=== PATIENT | female | born 1935 | race Caucasian/White ===

== ENCOUNTER 2017-11-16 09:05 | Outpatient (CLI) | payer MEDICARE ==
--- NOTE | 2017-11-16 12:08 | MRI ---
MRI LUMBAR SPINE WITHOUT IV CONTRAST: 11/16/2017 HISTORY: Radiculopathy of the lumbar region. COMPARISON: 02/01/2014 FINDINGS: There is a large ventral abdominal wall hernia at the level of the umbilicus, which contains loops of small bowel. The defect measures approximately 4.3 cm in craniocaudal dimensions. Based on this li mited examination, no dilated loops of small bowel are seen. There are stable increased T2 weighted signal intensity exophytic lesions involving the left kidney, statistically likely representing small cysts. The remainder of the retroperitoneal structures have a normal MRI appearance. The conus medullaris is normal in appearance and terminates at the level of the L1 vertebral body. There are mild endplate degenerative changes seen at the lumbosacral junction. There is a stable rou nded area of increased T1 and T2 weighted signal intensity seen in the T2 vertebral body, demonstrati ng characteristics most compatible with hemangioma. A similar finding is seen in the L4 vertebral louann dy. L1-L2: There is a mild broad-based disk osteophyte complex, which slightly effaces the ventral aspec t of the thecal sac. The neural foramina are patent at this level. L2-L3: There is a mild broad-based disk bulge and facet degenerative changes. Findings result in mi nimal narrowing of the central spinal canal. The neural foramina are patent. L3-L4: There is a broad-based disk osteophyte complex with moderate facet hypertrophic changes. The re is minimal narrowing of the central spinal canal due to the disk osteophyte complex and mass effec t on the posterolateral aspects of the thecal sac due to prominent facet hypertrophic changes. The n eural foramina are patent. L4-L5: There has been interval development of grade 1 anterolisthesis of L4 on L5 with the degree of listhesis measuring approximately 5 to 6 mm. There is a disk osteophyte complex present with severe facet hypertrophic changes. Fluid signal intensity is seen in the facet joints. There is mild thic kening of the ligamentum flavum. There is only minimal encroachment on the left neural foramen with mild to moderate right-sided neural foraminal narrowing. There is suggestion of a synovial cyst in t he right neural foramen on the prior exam, emanating from the facet joint, but this is not appreciate d on today's exam or is at least much smaller in size compared to the prior exam. L5-S1: Again, there is grade 1 anterolisthesis of L5 on S1 with prominent bilateral facet hypertroph ic changes with fluid signal intensity in the facet joints; however, there is no significant narrowin g of the central spinal canal. There is a mild broad-based disk osteophyte complex with mild right-s ided neural foraminal narrowing. The left neural foramen is patent. IMPRESSION: 1. Large ventral abdominal wall hernia, which is at the level of the umbilicus. This hernia does co ntain loops of small bowel. 2. Multilevel degenerative changes in the lumbar spine, overall similar to the study in 2014, with g rade 1 anterolisthesis of L4 on L5 and L5 on S1. The previously described synovial cyst at theseen delineated on today's examination and is certainly much smaller in size, compared to the prior exam. POS: [facility]
== END 2017-11-16 09:06 | disposition home or self-care (01) ==
LOC: MRI 09:05
PROVIDERS: ATTEND Nurse Practitioner Family
DX: M47.26 Other spondylosis with radiculopathy, lumbar region (principal); M43.16 Spondylolisthesis, lumbar region; M43.17 Spondylolisthesis, lumbosacral region; K42.9 Umbilical hernia without obstruction or gangrene; K43.9 Ventral hernia without obstruction or gangrene
CPT/HCPCS: 72148

== ENCOUNTER 2017-11-19 08:36 | Outpatient (CLI) | payer MEDICARE ==
--- NOTE | 2017-11-19 09:59 | RAD ---
NEUTRAL AND FLEXION AND EXTENSION LATERAL RADIOGRAPHS OF THE LUMBAR SPINE: DATE: 11/19/17. HISTORY: Lumbar radiculopathy. FINDINGS: There is an old fracture at the S2 level. On neutral imaging, there is anterolisthesis measuring 4 m m at L3-4, 1 cm at L4-5, and 1 cm at L5-S1 with flexion, anterolisthesis measures 5 mm at L3-4, 12 mm at L4-5, and 11 mm at L5-S1. With extension, anterolisthesis of L3 on L4 measures 2 mm, L4 on L5 me asures 9 mm, and L5 on S1 measures 9 mm. There is multilevel lower lumbar spine facet hypertrophic change. No acute fracture is seen. There is atherosclerotic calcification of the abdominal aorta. IMPRESSION: Multilevel anterolisthesis within the lower lumbar spine, most prominent with flexion. POS: [facility]
== END 2017-11-19 08:37 | disposition home or self-care (01) ==
LOC: RAD 08:36
PROVIDERS: ATTEND Nurse Practitioner Family
DX: M54.16 Radiculopathy, lumbar region (principal); M43.16 Spondylolisthesis, lumbar region
CPT/HCPCS: 72100

== ENCOUNTER 2017-12-28 10:00 | Outpatient (CLI) | payer MEDICARE ==
[2017-12-28 11:26] LABS: #Eosinphils 0.1 thou/uL (0.0-0.7); #Lymphocytes 1.6 thou/uL (1.20-3.40); #Monocytes 0.5 thou/uL (0.11-0.59); #Neutrophils 3.2 thou/uL (1.40-6.50); %Basophils 0.5 % (0.0-1.0); %Eosinophils 1.7 % (0.0-10.0); %Lymphocytes 29.3 % (21.0-51.0); %Monocytes 10.1 % (0.0-10.0); %Neutrophils 58.5 % (42.0-75.0); Hemoglobin 13.2 g/dL (12.0-16.0); Mean Corpuscular Hemoglobin 30.1 pg (27.0-31.0); Mean Corpuscular Volume 91.1 fl (81.0-99.0); Mean Platelet Volume 6.6 fL (7.4-10.4); Platelet Count 260 thou/uL (130-400); Red Blood Cell (RBC) Count 4.37 mill/uL (4.20-5.40); White Blood Cell (WBC) Count 5.4 thou/uL (4.8-10.8)
[2017-12-28 11:49] LABS: ALT (SGPT) 9 U/L (8-55); AST (SGOT) 17 U/L (5-34); Alkaline Phosphatase 53 U/L (40-150); Anion Gap 11 mmol/L (10-20); BUN (Urea Nitrogen) 21 mg/dL (9.8-20.1); Bilirubin, Total 0.6 mg/dL (0.2-1.2); Calc. Creatinine Clearance 0 mL/min (70-130); Calcium 9.5 mg/dL (7.8-10.44); Carbon Dioxide 24 mmol/L (23-31); Chloride 102 mmol/L (98-107); Estimated GFR-MDRD 69; Glucose 96 mg/dL (83-110); Potassium 3.9 mmol/L (3.5-5.1); Sodium 133 mmol/L (136-145)
--- NOTE | 2017-12-28 23:54 | EKG ---
Test Reason : Blood Pressure : / mmHG Vent. Rate : 050 BPM Atrial Rate : 050 BPM P-R Int : 190 ms QRS Dur : 076 ms QT Int : 418 ms P-R-T Axes : 074 037 053 degrees QTc Int : 381 ms Sinus bradycardia Otherwise normal ECG When compared with ECG of 02-OCT-2016 12:53, No significant change was found Confirmed by Andre GOMEZ ([id number]) on 12/28/2017 11:53:46 PM Referred By: ALEJANDRO Confirmed By:Andre GOMEZ
== END 2017-12-28 10:01 | disposition home or self-care (01) ==
LOC: LABBT 10:00
PROVIDERS: ATTEND Surgery
DX: Z01.818 Encounter for other preprocedural examination (principal); K43.9 Ventral hernia without obstruction or gangrene; R00.1 Bradycardia, unspecified
CPT/HCPCS: 80053; 85025; 93005; 93010

== ENCOUNTER 2017-12-31 05:39 | Inpatient (IN) | payer MEDICARE ==
[2017-12-28 10:23] VITALS: BMI 26.6
[2017-12-31] MEDS ORDERED: CEFAZOLIN 1 GM VIAL ONE (05:55)
[2017-12-31] MEDS ORDERED: CEFAZOLIN/Water 2 GM/20 ML SYRINGE ONE (05:56)
[2017-12-31] MEDS ORDERED: Bupivacaine/Epinephrine 0.25% 30 ML VIAL ONE (06:55)
[2017-12-31] MEDS ORDERED: Fentanyl 100 MCG/2 ML VIAL ONE ×2 (08:00→10:22)
[2017-12-31] MEDS ORDERED: Dextrose 50% Abboject 50 ML SYRINGE SLOW IVP PRN (10:07)
[2017-12-31] MEDS ORDERED: Ondansetron PF 4 MG/2 ML Vial IVP PRN (10:07)
[2017-12-31] MEDS ORDERED: Promethazine HCl 25 MG/ML VIAL IM PRN ×2 (10:07→10:23)
[2017-12-31] MEDS ORDERED: Dextrose 5% in Water 1,000 ML IV PRN (10:07)
[2017-12-31] MEDS ORDERED: Morphine 4 MG/ML Carpuject SLOW IVP PRN (10:07)
[2017-12-31] MEDS ORDERED: HYDROcodone/Acetaminophen 10/325 mg Tablet PO PRN ×2 (10:07)
[2017-12-31] MEDS ORDERED: hydrALAZINE 20 MG/ML VIAL SLOW IVP PRN (10:07)
[2017-12-31] MEDS ORDERED: Promethazine HCl 25 MG/ML VIAL SLOW IVP PRN (10:23)
[2017-12-31] MEDS ORDERED: Ondansetron HCl/PF 4 MG/2 ML Vial IVP PRN (10:23)
--- NOTE | 2017-12-31 10:39 | OP ---
PREOPERATIVE DIAGNOSIS: Recurrent incisional ventral hernia. SURGEON: Dalton Barnes M.D. PROCEDURE: Laparoscopic ventral hernia repair with mesh. INDICATIONS: This is an 82-year-old female who has had 3 previous umbilical/ventral hernia repairs w ith recurrences. FINDINGS: 6 cm defect. We used #1 V-Loc to close the defect and a 15 x 20 cm piece of Proceed mesh to repair. PROCEDURE IN DETAIL: After informed consent was obtained, the patient was taken to the operating arik m and given general endotracheal anesthesia. She was placed in the supine position with the right si de slightly bumped. Her flank and abdomen was prepped and draped in the usual fashion. Local anesth esia infiltrated subcutaneously and deep, and a transverse incision performed right flank. A Veress needle was inserted. Drop test performed. Pneumoperitoneum was created to a volume of 2 liters of c arbon dioxide. Utilizing a bladeless 12 mm trocar and 0-degree laparoscope, direct visual entry in t he abdominal cavity was performed. Pneumoperitoneum was created to a pressure of 15 [address] vision, two 5-mm ports were placed on the far right lateral abdomen. A laparoscopic lysis of adh esions was performed sharply utilizing the LigaSure. The anterior abdominal wall was completely saul brian off to expose the defect. The defect was closed with a running #1 V-Loc suture transversely, and this was done with the pressure reduced to 10 mmHg with the pressure continued to be at a lower leve l. A 15 x 20 cm piece of Proceed mesh was fashioned with eight alternating colored sutures placed. It was rolled and inserted intra-abdominally then unrolled. Then, using the GraNee needle, these Eth ibond sutures were grasped individually to position the mesh optimally to cover the defect. These we re then tied down and the mesh was further secured with the ProTack Tacker. Hemostasis was assured. At this point, the 12 mm trocar site was closed with 0 Vicryl suture and the GraNee needle. Trocars and retractors removed. The skin closed with interrupted 4-0 Rapide. Dermabond applied. An abdomi nal binder then applied. The patient tolerated the procedure well and was transferred to recovery in good condition. Sponge and needle count verified correct x2.
[2017-12-31] MEDS ORDERED: Morphine 2 mg/2ml in 0.9% NaCl PF SYRINGE SLOW IVP PRN (12:57)
[2017-12-31] MEDS ORDERED: Morphine 4 MG/ML VIAL SLOW IVP PRN (13:15)
[2017-12-31] MEDS: Ketorolac Tromethamine 30 MG/ML VIAL IVP SCH ×2 (13:22→17:58)
[2017-12-31] MEDS: D5 1/2 NS w/20 mEq KCL 1,000 ML IV SCH (13:22)
[2017-12-31] MEDS: Piperacillin/Tazobactam 3.375 GM in Sodium Chloride 0.9% 100 ML IVPB SCH ×2 (13:22→17:57)
[2017-12-31] MEDS ORDERED: Ondansetron PF 4 MG/2 ML Vial ONE (13:50)
[2017-12-31] MEDS ORDERED: ePHEDrine/0.9% NaCl/PF SYRINGE 50 mg/10 ml ONE (13:50)
[2017-12-31] MEDS ORDERED: Succinylcholine Chloride 20 MG/ML 10 ml SYRINGE FS ONE (13:50)
[2017-12-31] MEDS ORDERED: Glycopyrrolate 0.2 MG/ML 5 ML SYRINGE ONE (13:50)
[2017-12-31] MEDS ORDERED: PROPOFOL 200 MG/20 ML VIAL ONE (13:50)
[2017-12-31] MEDS: Famotidine/PF 20 mg/2ml Vial SLOW IVP SCH (21:25)
[2017-12-31] MEDS: Famotidine 20 MG TAB PO SCH (21:25)
[2018-01-01] MEDS: Ketorolac Tromethamine 30 MG/ML VIAL IVP SCH ×4 (00:14→18:26)
[2018-01-01] MEDS: Piperacillin/Tazobactam 3.375 GM in Sodium Chloride 0.9% 100 ML IVPB SCH ×4 (00:15→18:27)
[2018-01-01 04:31] LABS: #Eosinphils 0.1 thou/uL (0.0-0.7); #Lymphocytes 0.9 thou/uL (1.20-3.40); #Monocytes 0.7 thou/uL (0.11-0.59); #Neutrophils 6.1 thou/uL (1.40-6.50); %Basophils 0.2 % (0.0-1.0); %Eosinophils 0.7 % (0.0-10.0); %Lymphocytes 11.7 % (21.0-51.0); %Monocytes 9.3 % (0.0-10.0); %Neutrophils 78.1 % (42.0-75.0); Hemoglobin 11.3 g/dL (12.0-16.0); Mean Corpuscular HGB CONC 32.5 g/dL (32.0-36.0); Mean Corpuscular Hemoglobin 29.7 pg (27.0-31.0); Mean Corpuscular Volume 91.2 fl (81.0-99.0); Mean Platelet Volume 6.7 fL (7.4-10.4); Platelet Count 241 thou/uL (130-400); RBC Distribution Width 11.9 % (11.5-14.5); Red Blood Cell (RBC) Count 3.81 mill/uL (4.20-5.40); White Blood Cell (WBC) Count 7.8 thou/uL (4.8-10.8)
[2018-01-01 04:44] LABS: Anion Gap 9 mmol/L (10-20); BUN (Urea Nitrogen) 11 mg/dL (9.8-20.1); Calc. Creatinine Clearance 66 mL/min (70-130); Calcium 8.5 mg/dL (7.8-10.44); Carbon Dioxide 25 mmol/L (23-31); Chloride 101 mmol/L (98-107); Estimated GFR-MDRD 76; Glucose 135 mg/dL (83-110); Sodium 131 mmol/L (136-145)
[2018-01-01] MEDS: D5 1/2 NS w/20 mEq KCL 1,000 ML IV SCH ×4 (05:57→23:52)
[2018-01-01] MEDS: Enoxaparin Sodium 40 MG/0.4 ML SYRINGE SC SCH (08:34)
[2018-01-01] MEDS: Famotidine 20 MG TAB PO SCH ×2 (08:34→19:58)
[2018-01-01] MEDS: Famotidine/PF 20 mg/2ml Vial SLOW IVP SCH ×2 (08:40→20:05)
[2018-01-01] MEDS ORDERED: Ondansetron PF 4 MG/2 ML Vial IVP PRN ×2 (10:10→10:52)
[2018-01-01] MEDS ORDERED: Bisacodyl 10 MG SUPP PR SCH (18:00)
[2018-01-02] MEDS: Piperacillin/Tazobactam 3.375 GM in Sodium Chloride 0.9% 100 ML IVPB SCH ×3 (00:01→12:04)
[2018-01-02] MEDS: Ketorolac Tromethamine 30 MG/ML VIAL IVP SCH ×3 (05:43→12:04)
--- NOTE | 2018-01-02 08:43 | DIS ---
DATE OF ADMISSION: 12/31/2017 DATE OF DISCHARGE: 01/02/2018 DISCHARGE DIAGNOSIS: Recurrent incisional ventral hernia. PROCEDURES DURING ADMISSION: Laparoscopic ventral hernia repair with mesh. HOSPITAL COURSE: The patient was admitted, taken to the operating room where she underwent a laparos copic ventral hernia repair with mesh. Postoperatively, she had a little bit of an ileus that has no w resolved. She is having bowel movements. She is tolerating diet. She is discharged home. Pain c ontrolled on p.o. medications. She is elderly and requires assistance with transfers, so she has for home health. We are discharging her home in good condition on hydrocodone and Zofran. She will fol low up with me in 7 days.
[2018-01-02] MEDS: Enoxaparin Sodium 40 MG/0.4 ML SYRINGE SC SCH (08:47)
[2018-01-02] MEDS: Famotidine 20 MG TAB PO SCH (08:47)
[2018-01-02] MEDS ORDERED: Tamsulosin HCl 0.4 MG CAP PO SCH (09:00)
[2018-01-02] MEDS: Famotidine/PF 20 mg/2ml Vial SLOW IVP SCH (09:02)
[2018-01-02] MEDS: D5 1/2 NS w/20 mEq KCL 1,000 ML IV SCH (09:03)
[2018-01-02 11:40] VITALS: BP 141/70; TEMP 97.3
--- NOTE | 2018-01-04 11:26 | PQF ---
LESLYE LEZAMA, RUBY Bass JR, MD [id number] CLINICAL DOCUMENTATION CLARIFICATION FORM: POST DISCHARGE DATE: 01/04/2018 ATTN: Dr. Barnes Please exercise your independent, professional judgment in responding to the clarification form. Clinical indicators are provided on the bottom of this form for your review Please check appropriate box(s): [ ] Ileus is a postoperative complication related to current/recent surgery [x ] Ileus is not a postoperative complication related to current/recent surgery [ ] Other diagnosis (please specify) [ ] Unable to determine In addition, please specify: Present on Admission (POA): [ ] Yes [ x ] No [ ] Unable to determine CLINICAL INDICATORS - SIGNS / SYMPTOMS / LABS Per discharge summary: Postoperatively, she had a little bit of an ileus that has now resolved. She is having bowel movements. She is tolerating diet. Per 01/01 progress note: Patient reports nausea and dry heaves. No flatus. Abdomen soft and non-distended. RISK FACTORS Per operative report: Status post laparoscopic ventral hernia repair with mesh 12/31/17. TREATMENT: Per 01/01 progress note/medications: IV Zofran. IV Phenergan. Clear liquids. (This form is maintained as a part of the permanent medical record) 2014 [employer] All Rights Reserved Jane [email or web address] [phone] MTDD
== END 2018-01-02 14:00 | disposition home or self-care (01) | DRG 354 ==
LOC: SDC 05:39 → SJJU 12:35
PROVIDERS: ADMIT Surgery; ATTEND Surgery
PROC: 0WUF4JZ Supplement Abdominal Wall with Synthetic Substitute, Percutaneous Endoscopic Approach (ICD-10-PCS; principal; 2017-12-31)
DX: K43.2 Incisional hernia without obstruction or gangrene (principal); K56.7 Ileus, unspecified; K21.9 Gastro-esophageal reflux disease without esophagitis; Z88.8 Allergy status to other drugs, medicaments and biological substances
CPT/HCPCS: 36415; 62323; 80048; 80053; 85025; 93005; C1781; J0690; J1040; J1650; J1885; J2001; J2270; J2405; J2543; J2550; J2704; J3010; J7050; S0020

== ENCOUNTER 2018-03-24 16:12 | Emergency (ER) | payer MEDICARE ==
[2018-03-24] MEDS ORDERED: Acetaminophen 500 MG TAB ONE (16:52)
--- NOTE | 2018-03-24 16:56 | CT ---
CT BRAIN WITHOUT CONTRAST: Date: 03/24/18 HISTORY: Trauma. Hematoma to left eye. No loss of consciousness. FINDINGS: No evidence of infarct, hemorrhage, midline shift, or abnormal extra-axial fluid collections are seen . The ventricular size is appropriate and the basilar cisterns are patent. The bony calvarium is inta ct. The visualized paranasal sinuses and mastoid air cells are well aerated. There is a soft tissue h ematoma in the left periorbital and frontal regions. IMPRESSION: No CT evidence of acute intracranial process. POS: [facility]
--- NOTE | 2018-03-24 16:59 | RAD ---
4 VIEWS RIGHT KNEE: Date: 03/24/18 HISTORY: Pain. Trauma. COMPARISON: None. FINDINGS: Moderate degenerative change in the medial compartment. Moderate degenerative change in the patellofe moral compartment. Trace suprapatellar effusion. No fracture. IMPRESSION: Moderate bicompartmental degenerative change. No fracture. POS: [facility]
--- NOTE | 2018-03-24 17:02 | CT ---
CT FACIAL BONES: Date: 03/24/18 HISTORY: Hematoma to left eye after fall. Left eye pain. FINDINGS: The orbital romero are intact. No retrobulbar hematoma is seen. No proptosis is identified. There is l eft periorbital soft tissue swelling with a small amount of air in the soft tissues. No air fluid lev els are noted in the paranasal sinuses or mastoid air cells. No facial bone fracture is seen. No temp oromandibular dislocation is identified. IMPRESSION: No CT evidence of facial bone fracture. POS: [facility]
== END 2018-03-24 18:07 | disposition home or self-care (01) ==
LOC: ERS 16:12
DX: S05.12XA Contusion of eyeball and orbital tissues, left eye, initial encounter (principal); S80.01XA Contusion of right knee, initial encounter; E03.9 Hypothyroidism, unspecified; W18.30XA Fall on same level, unspecified, initial encounter
CPT/HCPCS: 70450; 70486